=== PATIENT | male | born 1985 | race American Indian/Alaskan Native ===

== ENCOUNTER 2016-11-21 15:35 | Emergency (ER) | payer MEDICAID ==
[2016-11-21 15:41] VITALS: TEMP 97.9; BMI 29.0
[2016-11-21 15:58] LABS: ADD MANUAL DIFF? NO
[2016-11-21 16:01] LABS: BASO # 0.03 K/mm3 (0.0-2.0); BASO % 0.6 % (0.0-3.0); EOS # 0.1 (0.0-0.7); EOS % 1.9 % (1.5-5.0); GRAN # 2.08 (1.4-6.5); GRAN % 43.3 % (50.0-68.0); HEMATOCRIT 41.1 % (42.0-52.0); LYMPH # 2.2 (1.2-3.4); LYMPH % 45.5 % (22.0-35.0); MEAN CELL VOLUME 90.5 fL (80.0-105.0); MEAN CORPUSCULAR HEMOGLOBIN 31.5 pg (25.0-35.0); MEAN CORPUSCULAR HGB CONC 34.8 g/dl (31.0-37.0); MEAN PLATELET VOLUME 9.4 fl (7.0-11.0); MONO # 0.4 (0.1-0.6); MONO % 8.7 % (1.0-6.0); PLATELET COUNT 261 10^3/uL (120.0-450.0); RED CELL DISTRIBUTION WIDTH 12.6 % (11.5-14.5); WHITE BLOOD COUNT 4.8 10^3/ul (4.5-11.0)
[2016-11-21 16:02] LABS: PH,URINE 6.5 (4.7-8.0); URINE BILIRUBIN NEGATIVE (NEGATIVE); URINE BLOOD TRACE-INTACT (NEGATIVE); URINE GLUCOSE (UA) NEGATIVE (NEGATIVE); URINE KETONE NEGATIVE (NEGATIVE); URINE LEUKOCYTE ESTERASE NEGATIVE Leu/uL (NEGATIVE); URINE PROTEIN NEGATIVE mg/dL (<30 mg/dL); URINE UROBILINOGEN 0.2 E.U./dL (<1 E.U./dL)
--- NOTE | 2016-11-21 16:05 | ED PDOC ---
Arrival/HPI - General Chief Complaint: Substance Abuse Time Seen by Provider: 11/21/16 15:48 - History of Present Illness Narrative History of Present Illness (Text): 11/21/16 15:53 31 y/o M LORE. Pt found down and altered at [facility]. EMS reports pt was driven to [facility] by girlfriend's aunt who reported pt was fine upon arrival to [facility]. Pt apparently dipped a cigarette in something before smoking it. Pt is currently altered and nonverbal. Pt had film case full of pills identified as percocet and oxycodone. (Tamy Ta) Past Medical History - Provider Review Nursing Documentation Reviewed: Yes Family/Social History - Physician Review Nursing Documentation Reviewed: Yes Family/Social History: No Known Family HX Allergies/Home Meds Allergies/Adverse Reactions: Allergies Unobtainable Allergy (Verified 11/21/16 16:04) Home Medications: Home Meds Medication Instructions Recorded Confirmed Unobtainable 11/21/16 11/21/16 Review of Systems - Review of Systems Systems not reviewed;Unavailable: Altered Mental Status Physical Exam - Physical Exam Physical Exam Limitations: Altered Mental Status Temperature: Afebrile Blood Pressure: Normal Pulse: Regular Respiratory Rate: Normal Appearance: Positive for: Non-Toxic Pain Distress: None Mental Status: No: Alert and Oriented X 3 - Systems Exam Head: Present: Atraumatic, Normocephalic Pupils: Present: Pinpoint Conjunctiva: Present: Normal Mouth: Present: Moist Mucous Membranes Respiratory/Chest: Present: Clear to Auscultation, Good Air Exchange. No: Respiratory Distress, Accessory Muscle Use Cardiovascular: Present: Regular Rate and Rhythm, Normal S1, S2. No: Murmurs Abdomen: No: Tenderness, Distention Genitourinary Male: Present: Normal External Genitalia Upper Extremity: Present: Normal Inspection Lower Extremity: Present: Normal Inspection. No: Edema Neurological: Present: Other (opens eyes to verbal stimuli). No: Speech Normal Skin: Present: Warm, Dry Psychiatric: Present: Intoxicated, Lethargic Medical Decision Making - RAD Interpretation Knowledge Manager: ED Physician (CXR: no active disease) - EKG Interpretation Interpreted by ED Physician: Yes (NSR, rate 83, no axis rotation and deviation) Type: 12 lead EKG ED Course and Treatment: 11/21/16 16:07 31 y/o M w/ AMS - Urine drug screen - Labs - EKG - reassess and dispo 11/21/16 16:27 Pt agitated and attempting to run through the ED naked. Pt sedated and restrained for pt safety. 11/21/16 17:46 Pt sedated. AVSS. Urine Tox positive for PCP. Blood EtOH 164. (Tamy Ta) 11/21/16 18:16 pt seen with resident. s/p suspected ingestion, found in store, brought in by ems for suspected intoxication, with abnormal behavior. in er, pt intially somulent, following some commands, later, agiated, running through er, yelling. sedated for patients safey. (Wesley Steiner) - Lab Interpretations Lab Results: 11/21/16 15:40 11/21/16 15:40 Lab Results 11/21/16 15:40: Alcohol, Quantitative 164 H 11/21/16 15:40: Salicylates < 1 L, Acetaminophen < 10.0 L 11/21/16 15:40: Sodium 141, Potassium 3.7, Chloride 107, Carbon Dioxide 24, Anion Gap 14, BUN 12, Creatinine 1.0, Est GFR ( Amer) > 60, Est GFR (Non- Af Amer) > 60, Random Glucose 96, Calcium 9.0, Total Bilirubin 1.9 H, AST 37, ALT 45, Alkaline Phosphatase 43, Total Protein 7.4, Albumin 4.4, Globulin 3.0, Albumin/Globulin Ratio 1.5 11/21/16 15:40: WBC 4.8, RBC 4.54, Hgb 14.3, Hct 41.1 L, MCV 90.5, MCH 31.5, MCHC 34.8, RDW 12.6, Plt Count 261, MPV 9.4, Gran % 43.3 L, Lymph % (Auto) 45.5 H, [place] % (Auto) 8.7 H, Eos % (Auto) 1.9, Baso % (Auto) 0.6, Gran # 2.08, Lymph # 2.2, Irwin # 0.4, Eos # 0.1, Baso # 0.03 11/21/16 13:40: Urine Opiates Screen Negative, Urine Methadone Screen Negative, Ur Barbiturates Screen Negative, Ur Phencyclidine Scrn Positive H, Ur Amphetamines Screen Negative, U Benzodiazepines Scrn Negative, U Oth Cocaine Metabols Negative, U Cannabinoids Screen Negative 11/21/16 13:40: Urine Color Yellow, Urine Appearance Clear, Urine pH 6.5, Ur Specific [place] 1.010, Urine Protein Negative, Urine Glucose (UA) Negative, Urine Ketones Negative, Urine Blood Trace-intact H, Urine Nitrate Negative, Urine Bilirubin Negative, Urine Urobilinogen 0.2, Ur Leukocyte Esterase Negative , Urine RBC 0 - 2, Urine WBC 1 - 3, Ur Epithelial Cells 1 - 3, Urine Bacteria Few - RAD Interpretation Radiology Orders: 11/21/16 15:53 CHEST PORTABLE [RAD] Stat - Medication Orders Current Medication Orders: Discontinued Medications Lorazepam (Ativan) Confirm Administered Dose 2 mg .ROUTE .STK-MED ONE Stop: 11/21/16 16:26 Last Admin: 11/21/16 17:09 Dose: Lorazepam (Ativan) 2 mg IVP ONCE ONE PRN Reason: Protocol Stop: 11/21/16 16:27 Last Admin: 11/21/16 17:09 Dose: 2 mg Ziprasidone (Geodon Inj) 20 mg IM STAT STA PRN Reason: Protocol Stop: 11/21/16 16:27 Last Admin: 11/21/16 16:34 Dose: Ziprasidone (Geodon Inj) Confirm Administered Dose 20 mg IM .STK-MED ONE Stop: 11/21/16 16:32 Last Admin: 11/21/16 16:33 Dose: 20 mg Disposition/Present on Arrival - Present on Arrival Any Indicators Present on Arrival: No - Disposition Have Diagnosis and Disposition been Completed?: No Disposition Time: 17:50 - Disposition Diagnosis: Drug abuse Condition: STABLE
[2016-11-21 16:08] LABS: URINE APPEARANCE CLEAR (CLEAR); URINE COLOR YELLOW (YELLOW)
[2016-11-21 16:13] LABS: ALB/GLOB RATIO 1.5 (1.1-1.8); ALKALINE PHOSPHATASE 43 U/L (38-133); ALT/SGPT 45 U/L (7-56); AST/SGOT 37 U/L (15-59); BILIRUBIN,TOTAL 1.9 mg/dL (0.2-1.3); BLOOD UREA NITROGEN 12 mg/dL (7-21); CARBON DIOXIDE 24 mmol/L (21-33); CHLORIDE 107 mmol/L (98-107); GFR AFRICAN-AMERICAN > 60; GLUCOSE,RANDOM 96 mg/dL (70-110); POTASSIUM 3.7 mmol/L (3.6-5.0); SODIUM 141 mmol/L (132-148); TOTAL PROTEIN 7.4 g/dL (5.8-8.3)
[2016-11-21 16:16] LABS: URINE BACTERIA FEW (NEG); URINE RBC 0 - 2 /hpf (0-2)
--- NOTE | 2016-11-21 17:23 | RAD ---
HISTORY: overdose COMPARISON: No prior. FINDINGS: LUNGS: The lungs are clear. PLEURA: No significant pleural effusion identified, no pneumothorax apparent. CARDIOVASCULAR: Normal. OSSEOUS STRUCTURES: No significant abnormalities. VISUALIZED UPPER ABDOMEN: Normal. OTHER FINDINGS: None. IMPRESSION: No acute findings.
--- NOTE | 2016-11-21 19:03 | ED PDOC ---
Physical Exam Vital Signs Temp Pulse Resp BP Pulse Ox 11/21/16 22:25 77 20 112/82 100 11/21/16 22:00 78 14 100/58 L 98 11/21/16 21:00 79 16 105/62 99 11/21/16 20:47 84 15 102/63 98 11/21/16 19:43 86 16 103/67 98 11/21/16 19:15 89 102/68 97 11/21/16 18:15 94 H 16 100/61 96 11/21/16 18:07 86 16 94/58 L 95 11/21/16 17:30 81 16 113/70 100 11/21/16 15:40 97.9 F 81 20 128/81 100 Medical Decision Making ED Course and Treatment: 11/21/16 19:00 Patient signed out to me by Dr. Steiner pending reassessment after sobriety. 11/21/16 22:54 Patient is now awake, alert and oriented X3. Patient is ambulatory with steady gait. On re-evaluation, patient feels better and is in no acute distress. I have discussed the results and plan with the patient, who expresses understanding. Patient in agreement with plan to be discharged home. Patient is stable for discharge. Patient was instructed to follow up with physician or return if symptoms worsen or new concerning symptoms arise. - Lab Interpretations Lab Results: 11/21/16 15:40 11/21/16 15:40 Lab Results 11/21/16 15:40: Alcohol, Quantitative 164 H 11/21/16 15:40: Salicylates < 1 L, Acetaminophen < 10.0 L 11/21/16 15:40: Sodium 141, Potassium 3.7, Chloride 107, Carbon Dioxide 24, Anion Gap 14, BUN 12, Creatinine 1.0, Est GFR ( Amer) > 60, Est GFR (Non- Af Amer) > 60, Random Glucose 96, Calcium 9.0, Total Bilirubin 1.9 H, AST 37, ALT 45, Alkaline Phosphatase 43, Total Protein 7.4, Albumin 4.4, Globulin 3.0, Albumin/Globulin Ratio 1.5 11/21/16 15:40: WBC 4.8, RBC 4.54, Hgb 14.3, Hct 41.1 L, MCV 90.5, MCH 31.5, MCHC 34.8, RDW 12.6, Plt Count 261, MPV 9.4, Gran % 43.3 L, Lymph % (Auto) 45.5 H, [place] % (Auto) 8.7 H, Eos % (Auto) 1.9, Baso % (Auto) 0.6, Gran # 2.08, Lymph # 2.2, La[place] # 0.4, Eos # 0.1, Baso # 0.03 11/21/16 13:40: Urine Opiates Screen Negative, Urine Methadone Screen Negative, Ur Barbiturates Screen Negative, Ur Phencyclidine Scrn Positive H, Ur Amphetamines Screen Negative, U Benzodiazepines Scrn Negative, U Oth Cocaine Metabols Negative, U Cannabinoids Screen Negative 11/21/16 13:40: Urine Color Yellow, Urine Appearance Clear, Urine pH 6.5, Ur Specific [place] 1.010, Urine Protein Negative, Urine Glucose (UA) Negative, Urine Ketones Negative, Urine Blood Trace-intact H, Urine Nitrate Negative, Urine Bilirubin Negative, Urine Urobilinogen 0.2, Ur Leukocyte Esterase Negative , Urine RBC 0 - 2, Urine WBC 1 - 3, Ur Epithelial Cells 1 - 3, Urine Bacteria Few - RAD Interpretation Radiology Orders: 11/21/16 15:53 CHEST PORTABLE [RAD] Stat - Medication Orders Current Medication Orders: Discontinued Medications Lorazepam (Ativan) Confirm Administered Dose 2 mg .ROUTE .STK-MED ONE Stop: 11/21/16 16:26 Last Admin: 11/21/16 17:09 Dose: Lorazepam (Ativan) 2 mg IVP ONCE ONE PRN Reason: Protocol Stop: 11/21/16 16:27 Last Admin: 11/21/16 17:09 Dose: 2 mg Ziprasidone (Geodon Inj) 20 mg IM STAT STA PRN Reason: Protocol Stop: 11/21/16 16:27 Last Admin: 11/21/16 16:34 Dose: Ziprasidone (Geodon Inj) Confirm Administered Dose 20 mg IM .STK-MED ONE Stop: 11/21/16 16:32 Last Admin: 11/21/16 16:33 Dose: 20 mg Disposition/Present on Arrival - Present on Arrival Any Indicators Present on Arrival: No History of DVT/PE: No History of Uncontrolled Diabetes: No Urinary Catheter: No History of Decub. Ulcer: No History Surgical Site Infection Following: None - Disposition Diagnosis: Drug abuse Disposition: HOME/ ROUTINE Disposition Time: 22:54 Patient Problems: Current Active Problems Problem Status Onset Drug abuse Acute Condition: STABLE Referrals: [facility] [place] [Outside] - Follow up with primary
[2016-11-21 22:38] VITALS: BP 112/82; PULSE 77; RESP 20; O2SAT 100
--- NOTE | 2016-11-22 15:39 | CARD ---
APPROVED REPORT EKG Measurement Heart [id number] <Conclusion> Normal sinus rhythm Normal ECG
== END 2016-11-21 23:10 | disposition home or self-care (01) ==
LOC: ED 15:35
DX: F19.10 Other psychoactive substance abuse, uncomplicated (principal)
CPT/HCPCS: 71010; 80053; 80320; 80324; 80329; 80345; 80346; 80349; 80353; 80358; 80361; 81001; 83992; 85025; 93005; 96372; 96374; 99285; J2060; J3486